=== PATIENT | female | born 1980 | race Caucasian/White ===

== ENCOUNTER 2019-02-26 02:48 | Inpatient (IN) | payer MEDICAID, OTHER ==
[2019-02-26] MEDS: ALBUTEROL 0.5% (NEB) 2.5 MG/0.5 ML AMP INH (04:04)
[2019-02-26 04:32] LABS: ADD MAN DIFF? NO
[2019-02-26] MEDS: KETOROLAC 15 MG INJ IV (04:32)
[2019-02-26 04:35] LABS: BASOPHIL # 0.1 10^3/ul (0.0-0.1); BASOPHILS % 0.6 % (0.0-2.0); EOSINOPHILS # 0.2 10^3/ul (0.0-0.5); EOSINOPHILS % 2.9 % (0.0-7.0); HEMATOCRIT 40.7 % (37.0-47.0); HEMOGLOBIN 12.7 g/dl (12.0-16.0); LYMPHOCYTES # 1.3 10^3/ul (0.8-2.9); LYMPHOCYTES % 16.8 % (15.0-51.0); MEAN CORPUSCULAR HEMOGLOBIN 23.6 pg (29.0-33.0); MEAN CORPUSCULAR HGB CONC 31.2 g/dl (32.0-37.0); MEAN CORPUSCULAR VOLUME 75.5 fl (82.0-101.0); MEAN PLATELET VOLUME 10.1 fl (7.4-10.4); MONOCYTE # 1.1 10^3/ul (0.3-0.9); MONOCYTES % 14.2 % (0.0-11.0); NEUTROPHIL # 5.2 10^3/ul (1.6-7.5); NEUTROPHILS % 65.1 % (39.0-77.0); PLATELET COUNT 286 10^3/UL (140-415); RED BLOOD COUNT 5.39 10^6/ul (4.20-5.40); RED CELL DISTRIBUTION WIDTH 14.9 % (11.5-14.5)
[2019-02-26 04:47] LABS: ADD UMIC YES; UR ASCORBIC ACID 40 mg/dL (NEGATIVE); UR BILIRUBIN (Dip) NEGATIVE (NEGATIVE); UR BLOOD (Dip) 3+ mg/dL (NEGATIVE); UR CLARITY SLIGHTLY CLOUDY (CLEAR); UR COLOR YELLOW (YELLOW); UR GLUCOSE (Dip) NEGATIVE (NEGATIVE); UR KETONES (Dip) NEGATIVE (NEGATIVE); UR LEUKOCYTE ESTERASE (Dip) NEGATIVE Leu/ul (NEGATIVE); UR NITRITE (Dip) NEGATIVE (NEGATIVE); UR RBC 1 /HPF (0-5); UR SPECIFIC GRAVITY (Dip) 1.016 (1.003-1.030); UR SQUAMOUS EPITHELIAL CELL FEW /HPF (FEW); UR TOTAL PROTEIN (Dip) NEGATIVE (NEGATIVE); UR UROBILINOGEN (Dip) NEGATIVE (NEGATIVE); UR WBC 5 /HPF (0-5)
[2019-02-26 04:52] LABS: ALANINE AMINOTRANSFERASE 25 IU/L (13-69); ALBUMIN 4.3 g/dl (3.3-4.9); ALKALINE PHOSPHATASE 58 IU/L (42-121); ANION GAP 12 (5-13); ASPARTATE AMINO TRANSFERASE 32 IU/L (15-46); BILIRUBIN,INDIRECT 0.4 mg/dl (0-1.1); BILIRUBIN,TOTAL 0.4 mg/dl (0.2-1.3); BLOOD UREA NITROGEN 14 mg/dl (7-20); CALCIUM 8.7 mg/dl (8.4-10.2); CARBON DIOXIDE 26 mmol/L (21-31); CHLORIDE 106 mmol/L (97-110); Estimated GFR > 60 mL/min (>60); GLUCOSE 104 mg/dl (70-220); LIPASE 107 U/L (23-300); POTASSIUM 3.4 mmol/L (3.5-5.1); SODIUM 144 mmol/L (135-144); TOTAL PROTEIN 8.6 g/dl (6.1-8.1)
[2019-02-26 05:00] LABS: B-TYPE NATRIURETIC PEPTIDE 1450 PG/ML (0-125)
[2019-02-26 05:04] LABS: TROPONIN-I 0.068 ng/ml (0.000-0.120)
[2019-02-26] MEDS: ENALAPRILAT 1.25 MG INJ IV (05:16)
[2019-02-26] MEDS: ASPIRIN 81 MG TAB PO (05:51)
[2019-02-26] MEDS: FUROSEMIDE 40 MG INJ IV ×2 (05:52→17:20)
[2019-02-26] MEDS ORDERED: NACL 0.9% 3 ML SYG IV (09:30)
[2019-02-26] MEDS: POTASSIUM CHLORIDE (SR) 20 MEQ TAB PO (09:41)
[2019-02-26] MEDS: HYDROCODONE/APAP (5/325) TAB PO (09:41)
[2019-02-26 10:47] LABS: AMPHETAMINE/METHAMPHETAMINE Negative (NEGATIVE); BARBITURATES Negative (NEGATIVE); BENZODIAZEPINES Negative (NEGATIVE); CANNABINOIDS Negative (NEGATIVE); COCAINE Negative (NEGATIVE); OPIATES Negative (NEGATIVE)
[2019-02-26 10:48] LABS: FREE T4 (FREE THYROXINE) 1.26 ng/dl (0.64-1.79)
[2019-02-26] MEDS: LOSARTAN 25 MG TAB PO (11:59)
[2019-02-26 13:02] LABS: CREATINE KINASE 215 IU/L (23-200)
[2019-02-26 13:13] LABS: CK INDEX 1.4; CK-MB 3.01 ng/ml (0.0-2.4)
[2019-02-26] MEDS: hydrALAzine 20 MG INJ IV (13:20)
[2019-02-26] MEDS: ACETAMINOPHEN 325 MG TAB PO (14:28)
[2019-02-26] MEDS: ACET/BUTAL/CAFF TAB PO (16:18)
[2019-02-26 18:10] LABS: CREATINE KINASE 249 IU/L (23-200)
[2019-02-26 18:22] LABS: CK INDEX 1.4; CK-MB 3.52 ng/ml (0.0-2.4); TROPONIN-I 0.047 ng/ml (0.000-0.120)
[2019-02-26] MEDS: LABETALOL HCL 20MG INJ IV (20:01)
[2019-02-26] MEDS: METHYLDOPA 250 MG TAB PO (21:19)
[2019-02-26] MEDS: NIFEdipine (XL) 60 MG TAB PO (21:19)
[2019-02-27] MEDS: METHYLDOPA 250 MG TAB PO ×4 (00:31→21:38)
[2019-02-27] MEDS: ACET/BUTAL/CAFF TAB PO (02:49)
[2019-02-27 06:19] LABS: ADD MAN DIFF? NO
[2019-02-27] MEDS: FUROSEMIDE 40 MG INJ IV ×2 (06:26→17:13)
[2019-02-27 06:28] LABS: BASOPHILS % 0.4 % (0.0-2.0); EOSINOPHILS # 0.1 10^3/ul (0.0-0.5); EOSINOPHILS % 1.2 % (0.0-7.0); HEMATOCRIT 40.8 % (37.0-47.0); HEMOGLOBIN 12.8 g/dl (12.0-16.0); LYMPHOCYTES # 1.1 10^3/ul (0.8-2.9); LYMPHOCYTES % 16.7 % (15.0-51.0); MEAN CORPUSCULAR HEMOGLOBIN 23.6 pg (29.0-33.0); MEAN CORPUSCULAR HGB CONC 31.4 g/dl (32.0-37.0); MEAN CORPUSCULAR VOLUME 75.1 fl (82.0-101.0); MEAN PLATELET VOLUME 10.4 fl (7.4-10.4); MONOCYTE # 0.9 10^3/ul (0.3-0.9); MONOCYTES % 13.4 % (0.0-11.0); NEUTROPHIL # 4.6 10^3/ul (1.6-7.5); PLATELET COUNT 316 10^3/UL (140-415); RED BLOOD COUNT 5.43 10^6/ul (4.20-5.40); RED CELL DISTRIBUTION WIDTH 15.1 % (11.5-14.5)
[2019-02-27 06:28] LABS: WHITE BLOOD COUNT 6.8 10^3/ul (4.8-10.8)
[2019-02-27 06:46] LABS: ALANINE AMINOTRANSFERASE 23 IU/L (13-69); ALBUMIN 4.3 g/dl (3.3-4.9); ALBUMIN/GLOBULIN RATIO 0.95; ALKALINE PHOSPHATASE 57 IU/L (42-121); ANION GAP 13 (5-13); ASPARTATE AMINO TRANSFERASE 36 IU/L (15-46); BILIRUBIN,INDIRECT 0.5 mg/dl (0-1.1); BILIRUBIN,TOTAL 0.5 mg/dl (0.2-1.3); BLOOD UREA NITROGEN 17 mg/dl (7-20); CALCIUM 8.7 mg/dl (8.4-10.2); CARBON DIOXIDE 22 mmol/L (21-31); CHLORIDE 106 mmol/L (97-110); CREATININE 0.97 mg/dl (0.44-1.00); Estimated GFR > 60 mL/min (>60); GLUCOSE 110 mg/dl (70-220); POTASSIUM 3.5 mmol/L (3.5-5.1); SODIUM 141 mmol/L (135-144); TOTAL PROTEIN 8.8 g/dl (6.1-8.1)
[2019-02-27 06:47] LABS: PHOSPHORUS 4.5 mg/dl (2.5-4.9)
[2019-02-27 06:47] LABS: CHOL/HDL RATIO 3.6 RATIO; CHOLESTEROL 107 mg/dl (100-200); HDL CHOLESTEROL 29 mg/dl (34-88); LDL CHOLESTEROL,CALCULATED 62 mg/dl; TRIGLYCERIDES 78 mg/dl (0-149)
[2019-02-27 06:48] LABS: CREATINE KINASE 191 IU/L (23-200)
[2019-02-27 06:55] LABS: B-TYPE NATRIURETIC PEPTIDE 781 PG/ML (0-125); CK INDEX 1.1
[2019-02-27 07:03] LABS: TROPONIN-I 0.124 ng/ml (0.000-0.120)
[2019-02-27] MEDS: NIFEdipine (XL) 60 MG TAB PO ×2 (08:13→20:34)
[2019-02-27] MEDS: ENOXAPARIN 40 MG/0.4 ML SYG SC (08:26)
[2019-02-27] MEDS: POTASSIUM CHLORIDE (SR) 20 MEQ TAB PO (09:07)
[2019-02-27] MEDS: ONDANSETRON 4 MG INJ IV (14:32)
[2019-02-27] MEDS: ALBUTEROL 0.083% (NEB) 2.5 MG/3 ML AMP HHN (15:47)
[2019-02-27] MEDS: ACETAMINOPHEN 325 MG TAB PO (20:34)
[2019-02-28] MEDS: ACETAMINOPHEN 325 MG TAB PO (05:12)
[2019-02-28] MEDS: METHYLDOPA 250 MG TAB PO ×2 (05:13→13:42)
[2019-02-28] MEDS: FUROSEMIDE 40 MG TAB PO (08:56)
[2019-02-28] MEDS: ENOXAPARIN 40 MG/0.4 ML SYG SC (08:57)
[2019-02-28] MEDS: NIFEdipine (XL) 60 MG TAB PO (08:57)
== END 2019-02-28 19:06 | disposition home or self-care (01) | DRG 291 ==
LOC: E/R 02:48 → TEL 05:29
DX: I11.0 Hypertensive heart disease with heart failure (principal); I50.31 Acute diastolic (congestive) heart failure; I16.1 Hypertensive emergency; Z68.42 Body mass index [BMI] 45.0-49.9, adult; E66.01 Morbid (severe) obesity due to excess calories; Z86.73 Personal history of transient ischemic attack (TIA), and cerebral infarction without residual deficits
CPT/HCPCS: 36415; 70450; 71045; 80053; 80061; 80307; 81001; 81025; 82550; 82553; 83036; 83690; 83735; 83880; 84100; 84439; 84443; 84484; 85025; 93005; 93306; 94644; 94664; 96374; 96375; 99285-25